=== PATIENT | male | born 1965 | race Caucasian/White ===

== ENCOUNTER → 2017-12-09 | Outpatient (CLI) | payer BC ==
[~2017-12-09] MED LIST: IOHEXOL 240 MG/ML 50ML VIAL. ONE
[2017-12-09] MEDS: IOHEXOL 300 MG/ML 75 ML VIAL. IV ONE (09:11)
--- NOTE | 2017-12-09 09:48 | RAD ---
CT of the abdomen and pelvis with contrast, 12/09/2017: History: Umbilical hernia Multidetector CT imaging was performed following oral and IV administration of contrast. No hepatic abnormality is evident. The gallbladder is unremarkable. No pancreatic abnormality is seen. Calcified splenic granulomata are present. The spleen is of normal size. The kidneys show no evidence of obstruction. 2 tiny subcentimeter cortical renal cysts are present in the left. There is mild aortic calcific plaquing without evidence of aneurysm. No abdominal or pelvic adenopathy is evident. The bowel loops are of normal caliber. The appendix is visualized and shows no abnormality. No free air or free fluid is evident in the abdomen or pelvis. There is a small fascial defect at the umbilical level containing only fat. No bowel herniation is evident. Moderate degenerative disc disease is present at L5-S1. IMPRESSION: 1. Small umbilical hernia containing only fat. 2. Tiny left renal cysts. 3. No acute abdominal or pelvic abnormality is detected. PQRS Compliance Statement: One or more of the following individualized dose reduction techniques were utilized for this examination: 1. Automated exposure control 2. Adjustment of the mA and/or kV according to patient size 3. Use of iterative reconstruction technique
== END | disposition home or self-care (01) ==
LOC: CT 07:58
PROVIDERS: ATTEND Family Medicine
DX: K42.9 Umbilical hernia without obstruction or gangrene (principal); N28.1 Cyst of kidney, acquired; M51.37 Other intervertebral disc degeneration, lumbosacral region
CPT/HCPCS: 74177; Q9966; Q9967

== ENCOUNTER → 2021-05-01 | Outpatient (CLI) | payer BC ==
--- NOTE | 2021-05-01 17:15 | RAD ---
CT ABDOMEN+PELVIS WO History: Left flank pain, hematuria. Comparison: CT abdomen pelvis 12/09/2017 Technique: Noncontrast CT of the abdomen and pelvis. Findings: The lung bases are clear. A few punctate calcifications are present within the liver. The gallbladder , pancreas, and adrenal glands are unremarkable. There are punctate calcifications in the spleen. The re is no hydronephrosis or nephrolithiasis. Tiny 6 mm exophytic cyst of the left kidney. No perinephr ic inflammatory changes. No hydroureter or ureterolithiasis. Decompressed stomach. Unremarkable small bowel. Normal appendix. No pericolonic inflammatory fat stra nding. The bladder is unremarkable. Normal prostate. No free fluid or intra-abdominal free air. No abdominop elvic adenopathy. Soft tissues are unremarkable. No acute or suspicious osseous lesion. Degenerative disc disease at L5 -S1. Impression: 1. No acute findings in the abdomen and pelvis. No nephrolithiasis or hydronephrosis. ------ Exposure: One or more of the following individualized dose reduction techniques were utilized for thi s examination: 1. Automated exposure control 2. Adjustment of the mA and/or kV according to patient size 3. Use of iterative reconstruction technique. Electronically signed by: Jeffy Denies MD (05/01/2021 5:12 PM) [facility]
== END ==
LOC: RAD 16:37
PROVIDERS: ATTEND Family Medicine
DX: N28.1 Cyst of kidney, acquired (principal); R31.9 Hematuria, unspecified; M51.37 Other intervertebral disc degeneration, lumbosacral region; D73.89 Other diseases of spleen; Z68.25 Body mass index [BMI] 25.0-25.9, adult
CPT/HCPCS: 74176